=== PATIENT | male | born 1960 | race Caucasian/White ===

== ENCOUNTER → 2018-08-01 | Outpatient (CLI) | payer BC ==
[~2018-08-01] MED LIST: ALPR.5 PO; ALPR1 PO; AMOCLA875 PO; ATOR10 PO; HYDR1TAB94 PO; LISI20 PO; RANI150 PO; SIMV10 PO; ZESTRIL40 MG PO
[2018-08-01 14:06] LABS: Alanine Aminotransfer (ALT/SGP 29 U/L (12-78); Albumin, Blood 4.4 g/dL (3.4-5.0); Albumin/Globulin Ratio 1.5 (0.8-1.8); Alk Phos 66 U/L (50-136); Anion Gap 5 mmol/L (6-16); Aspartate Aminotrans (AST/SGOT 19 U/L (12-37); Bilirubin, Total 0.7 mg/dL (0.1-1.0); Blood Urea Nitrogen 24 mg/dL (8-24); Bun/Creatinine Ratio 23.3 (12.0-20.0); CHOL/HDL RATIO 5.4; CO2, Blood 27 mmol/L (21-32); Calcium, Blood 9.2 mg/dL (8.5-10.1); Chloride, Blood 108 mmol/L (98-108); Cholesterol 291 mg/dL (50-200); Creatinine, Blood 1.03 mg/dL (0.60-1.20); Glomerular Filtration Rate >60 (60-); Glucose, Blood 99 mg/dL (70-99); HDL Cholesterol 54 mg/dL (>39); LDL/HDL RATIO 3.9; Low Density Lipoprotein Chol 213 mg/dL (0-110); Potassium, Blood 4.1 mmol/L (3.5-5.5); Prostate Specific Antigen 0.424 ng/mL (0.000-4.000); Sodium, Blood 140 mmol/L (136-145); Total Protein, Blood 7.4 g/dL (6.4-8.2); Triglycerides 122 mg/dL (30-160); Very Low Density Lipoprot Chol 24 mg/dL (6-32)
== END | disposition home or self-care (01) ==
LOC: LAB SHORT 13:36 → LAB 13:36
PROVIDERS: Hospitalist
DX: Z00.00 Encounter for general adult medical examination without abnormal findings (principal); Z12.5 Encounter for screening for malignant neoplasm of prostate; I10 Essential (primary) hypertension
CPT/HCPCS: 80053; 80061; G0103

== ENCOUNTER 2020-08-14 20:18 | Emergency (ER) | payer BC ==
[~2020-08-14] VITALS: Ht 182.9 cm; Wt 113.4 kg
[2020-08-14 20:46] LABS: BASOPHILS ABSOLUTE AUTO 0.03 K/mm3 (0.00-0.23); BASOPHILS PERCENT AUTO 1 % (0-2); EOSINOPHILS PERCENT AUTO 3 % (0-6); Hemoglobin 14.9 g/dL (13.5-17.5); IMMATURE GRAN ABSOLUTE AUTO 0.02 K/mm3 (0.00-0.10); IMMATURE GRAN PERCENT AUTO 0 % (0-1); LYMPHOCYTES ABSOLUTE AUTO 2.28 K/mm3 (0.84-5.20); LYMPHOCYTES PERCENT AUTO 36 % (21-46); MONOCYTES PERCENT AUTO 10 % (4-13); Mean Corpuscular HGB 31.6 pg (26.0-34.0); Mean Corpuscular HGB Conc 34.7 g/dL (31.5-36.5); Mean Corpuscular Volume 91 fL (80-100); Mean Platelet Volume 9.8 fL (9.1-12.4); NEUTROPHILS ABSOLUTE AUTO 3.19 K/mm3 (1.96-9.15); NEUTROPHILS PERCENT AUTO 50 % (41-73); Platelet Count 238 K/mm3 (150-400); RDW Coefficient Variation 12.9 % (11.7-14.2); RDW Standard Deviation 43.6 fL (35.1-46.3); Red Blood Cell Count 4.71 M/mm3 (4.30-5.90); White Blood Cell Count 6.32 K/mm3 (4.00-11.30)
[2020-08-14 21:06] LABS: Alanine Aminotransfer (ALT/SGP 41 U/L (12-78); Albumin, Blood 3.8 g/dL (3.4-5.0); Albumin/Globulin Ratio 1.2 (0.8-1.8); Alk Phos 81 U/L (50-136); Anion Gap 6 mmol/L (6-16); Aspartate Aminotrans (AST/SGOT 26 U/L (12-37); Bilirubin, Total 0.2 mg/dL (0.1-1.0); Blood Urea Nitrogen 24 mg/dL (8-24); Bun/Creatinine Ratio 22.2 (12.0-20.0); CO2, Blood 27 mmol/L (21-32); Calcium, Blood 8.8 mg/dL (8.5-10.1); Chloride, Blood 108 mmol/L (98-108); Creatinine, Blood 1.08 mg/dL (0.60-1.20); Globulin, Blood 3.1 g/dL (2.2-4.0); Glomerular Filtration Rate >60 (60-); Glucose, Blood 137 mg/dL (70-99); Potassium, Blood 3.6 mmol/L (3.5-5.5); Sodium, Blood 141 mmol/L (136-145); Total Protein, Blood 6.9 g/dL (6.4-8.2); Troponin I <0.015 ng/mL (0.000-0.040)
[2020-08-15] MEDS ORDERED: XARELTO20 MG PO (01:17)
[2020-08-15] MEDS ORDERED: Cardizem CD 12120 MG PO (01:17)
[2020-09-12] MEDS ORDERED: Crestor20 MG (14:15)
[2020-09-12] MEDS ORDERED: REVATIO10 MG/1 ML PO (14:16)
[2020-09-12] MEDS ORDERED: ESCI10 PO (14:17)
[2020-09-12] MEDS ORDERED: AMLODIPINE-BEN1 EACH PO (14:17)
[2020-09-15] MEDS ORDERED: NEBI10 PO (07:15)
[2020-09-15] MEDS ORDERED: XARELTO20 MG PO (08:00)
== END 2020-08-15 02:35 | disposition home or self-care (01) ==
LOC: ER 20:18
PROVIDERS: Physician Assistant
DX: I48.91 Unspecified atrial fibrillation (principal); I10 Essential (primary) hypertension; K21.9 Gastro-esophageal reflux disease without esophagitis; E78.1 Pure hyperglyceridemia; Z87.891 Personal history of nicotine dependence; Z79.899 Other long term (current) drug therapy
CPT/HCPCS: 36415; 71046; 80053; 84484; 85025; 93005; 93010; 99284-25; A9270

== ENCOUNTER 2020-12-08 18:29 | Emergency (ER) | payer BC ==
[~2020-12-08] VITALS: Ht 182.9 cm; Wt 106.6 kg
[~2020-12-08 18:29] MED LIST changes: +AMLODIPINE-BEN1 EACH PO; +Cardizem CD 12120 MG PO; +Crestor20 MG; +ESCI10 PO; +NEBI10 PO; +REVATIO10 MG/1 ML PO; +XARELTO20 MG PO
== END 2020-12-08 19:41 | disposition home or self-care (01) ==
LOC: ER 18:29
DX: S80.12XA Contusion of left lower leg, initial encounter (principal); I10 Essential (primary) hypertension; K21.9 Gastro-esophageal reflux disease without esophagitis; Z79.01 Long term (current) use of anticoagulants; Z79.899 Other long term (current) drug therapy; Z87.891 Personal history of nicotine dependence
CPT/HCPCS: 99282

== ENCOUNTER → 2023-01-12 | Outpatient (CLI) | payer OTHER ==
[2023-01-12 15:57] LABS: Albumin, Blood 4.3 g/dL (3.4-5.0); Albumin/Globulin Ratio 1.5 (0.8-1.8); Bilirubin, Total 0.5 mg/dL (0.1-1.0); Bun/Creatinine Ratio 15.7 (12.0-20.0); Calcium, Blood 9.2 mg/dL (8.5-10.1); Creatinine, Blood 0.89 mg/dL (0.60-1.20); Globulin, Blood 2.8 g/dL (2.2-4.0); Potassium, Blood 4.2 mmol/L (3.5-5.5); Total Protein, Blood 7.1 g/dL (6.4-8.2)
== END | disposition home or self-care (01) ==
LOC: LAB SHORT 09:15 → LAB 09:15
PROVIDERS: Hospitalist
DX: I10 Essential (primary) hypertension (principal)
CPT/HCPCS: 80053

== ENCOUNTER → 2024-08-21 | Outpatient (CLI) | payer OTHER ==
[2024-08-21 09:55] LABS: LDL/HDL RATIO 1.6; Very Low Density Lipoprot Chol 57 mg/dL (6-32)
[2024-08-21 09:56] LABS: Anion Gap 8 mmol/L (3-11); Blood Urea Nitrogen 17 mg/dL (8-24); Bun/Creatinine Ratio 14.8 (12.0-20.0); CHOL/HDL RATIO 3.8; CO2, Blood 30 mmol/L (21-32); Calcium, Blood 9.4 mg/dL (8.5-10.1); Chloride, Blood 104 mmol/L (98-108); Cholesterol 180 mg/dL (50-200); Creatinine, Blood 1.15 mg/dL (0.60-1.20); Glomerular Filtration Rate 72 (60-); Glucose, Blood 108 mg/dL (70-99); HDL Cholesterol 48 mg/dL (>39); Low Density Lipoprotein Chol 75 mg/dL (0-110); Potassium, Blood 3.9 mmol/L (3.5-5.5); Sodium, Blood 138 mmol/L (136-145); Triglycerides 285 mg/dL (30-160)
== END | disposition home or self-care (01) ==
LOC: LAB 07:37 → LAB SHORT 07:37
PROVIDERS: Hospitalist
DX: E78.5 Hyperlipidemia, unspecified (principal); I10 Essential (primary) hypertension
CPT/HCPCS: 36415; 80048; 80061

== ENCOUNTER 2024-08-22 05:53 | Day surgery (SDC) | payer OTHER ==
[~2024-08-22] VITALS: Ht 182.9 cm; Wt 121.2 kg
[2024-08-22] MEDS ORDERED: Lactated Ringer's 1,000 ML IV SCH (06:15)
[2024-08-22 06:30] VITALS: BP 126/70
[2024-08-22] MEDS ORDERED: propofoL 60 ML IV ONE (07:07)
--- NOTE | 2024-08-22 07:37 | NUR ---
08/22/24 0737 Heraclio Baer MONITOR INTACT WITH CONTINUOUS PULSE OXIMETRY, CONTINUOUS END TITAL CO2, 3-LEAD EKG AND INTERMITTENT BLOOD PRESSURE. ANESTHESIA PER DR. WISE
[2024-08-22 07:59] VITALS: BP 101/59
--- NOTE | 2024-08-22 08:14 | NUR ---
NO C/O, DENIES NEED FOR ANYTHING TO DRINK. Discharge instructions reviewed with patient. Patient verbalizes understanding. Copy given to patient to take home.
--- NOTE | 2024-08-22 08:15 | NUR ---
PT DRESSED, Discharged via wheelchair to private car for ride home.
== END 2024-08-22 08:17 | disposition home or self-care (01) ==
LOC: ORSCMMR 05:53 → ORD 07:30 → ORSCMMR 08:17
PROVIDERS: Internal Medicine Gastroenterology
PROC: 0DBP8ZX Excision of Rectum, Via Natural or Artificial Opening Endoscopic, Diagnostic (ICD-10-PCS; principal; 2024-08-22 07:30)
DX: Z12.11 Encounter for screening for malignant neoplasm of colon (principal); Z86.0101 Personal history of adenomatous and serrated colon polyps; K62.1 Rectal polyp; I48.0 Paroxysmal atrial fibrillation; E78.5 Hyperlipidemia, unspecified; E78.1 Pure hyperglyceridemia; I10 Essential (primary) hypertension; G47.33 Obstructive sleep apnea (adult) (pediatric); E66.9 Obesity, unspecified; Z68.36 Body mass index [BMI] 36.0-36.9, adult; Z79.01 Long term (current) use of anticoagulants; Z79.899 Other long term (current) drug therapy
CPT/HCPCS: 88305; J2704; J7120